=== PATIENT | male | born 1940 | race Caucasian/White ===

== ENCOUNTER → 2016-07-03 | Outpatient (CLI) | payer MEDICARE, OTHER ==
[~2016-07-03] MED LIST: AMIODARONE PO; ASPIRIN PO; ASPIRIN81 M2 PO; CIPRO250 MG PO; COUMADIN PO; COUMADIN2.5 MG PO; COUMADIN5 MG PO; FINASTERIDE5 MG PO; FLOMAX0.4 M1 PO; FLOMAX0.4 MG PO; LEVAQUIN PO; LEVOTHROID50 MCG PO; LEVOTHYROXINE50 MCG PO; LIPITOR PO; LIPITOR20 MG PO; LORTAB 7.5-5001 TAB PO; LOVENOX SUBQ; METRONIDAZOLE PO; MOBIC PO; MULTIVITAMIN PO; PERCOCET 51 UDTAB 5/ PO; PRAVASTATIN SOD40 MG PO; RED YEAST RICE600 MG PO; ROXICODONE5 MG; SIMVASTATIN40 MG PO; TRILIPIX135 MG PO; VICODIN PO; VIT E PO; VITAMIN C1000 M2 PO; VITAMIN C500 M1 PO; VITAMIN E200 UNIT PO; VITAMIN E400 UNI2 PO
--- NOTE | ~2016-07-03 | CR229 ---
[facility] A Service of [facility] RADIOLOGY TEXT RESULTS PATIENT: ALEX RIVERA LOCATION: [facility] : 42 UNIT #: [id number] AGE: [address]: Kaitlynn Quick MD SEX: M ORDER DR: [id number] [facility] [address] [place], [place] [address] [id number] O MR#: [id number] Acc #: [id number] NAME: ALEX RIVERA. : 1940 SEX: M STUDY DATE/TIME: 07/03/2016 13:45 UNIT: [facility] ROOM: STUDY DESCRIPTION: CR Shoulder Min 2 View Lt Attending Physician: Kaitlynn Quick M.D. Referring Physician: Kaitlynn Quick M.D. Ordering Physician: Kaitlynn Quick M.D. Primary Care Physician: Kaitlynn Quick M.D. MEDICAL IMAGING REPORT This report is preliminary unless electronic signature is present EXAM 3 views left shoulder 07/03/2016 HISTORY Left shoulder pain for 4 weeks. Fell. History of previous shoulder surgery. COMPARISON None. FINDINGS No acute fracture or dislocation. Mild degenerative change of the acromioclavicular joint. No acromioclavicular or coracoclavicular separation. Imaged left ribs appear intact and the imaged left lung apex is clear. 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 Otherwise, normal 3 views of the left shoulder. Dictated by... Sherry Weinberg M.D. THIS IS AN ELECTRONICALLY VERIFIED REPORT Sherry Weinberg M.D. at 07/06/2016 8:33 AM LLH/rossana TD: 07/03/2016 20:28 JOB #: [id number] MEDICAL IMAGING REPORT [facility] A Service [facility] RADIOLOGY TEXT RESULTS PATIENT: ALEX RIVERA [id number] : 42 UNIT #: [id number] AGE: [address]: Kaitlynn Quick MD SEX: M ORDER DR: Page 1 of 1 COPY
== END | disposition home or self-care (01) ==
LOC: CRAD 13:26
DX: M25.512 Pain in left shoulder (principal)
CPT/HCPCS: 73030